=== PATIENT | female | born 1980 | race Two or more races ===

== ENCOUNTER 2017-10-31 14:46 | Emergency (ER) | payer BC ==
[~2017-10-31] VITALS: Ht 157.5 cm; Wt 85.7 kg
[2017-10-31] MEDS ORDERED: EPINEPHRINE (1:10,000) SYRINGE 1 MG/10 ML DISP.SYRIN ONE (14:55)
--- NOTE | 2017-10-31 14:55 | NUR ---
PATIENT TO ED DT POSSIBLE ALLERGIC REACTION FROM UNKNOWN ETIOLOGY. PATIENT NOTED WITH SCATTERED HIVES AND SWOLLEN LIPS. PATIENT'S TACHY ON TELE MONITOR. SKIN IS WARM TO TOUCH AND NON DIAPHORETIC. PT IS AFEBRILE. VSS
[2017-10-31] MEDS ORDERED: diphenhydrAMINE HCL 50 MG/ML VIAL ONE (14:58)
[2017-10-31] MEDS ORDERED: EPINEPHRINE (1:1000) 1 MG/ML AMPUL ONE (14:58)
[2017-10-31] MEDS ORDERED: methylPREDNISolone SOD SUCC 125 MG/2ML VIAL IV ONE (15:00)
[2017-10-31] MEDS ORDERED: IV NS 0.9% 1,000 ML BAG IV ONE (15:00)
[2017-10-31] MEDS ORDERED: diphenhydrAMINE HCL 50 MG/ML VIAL IV ONE (15:00)
[2017-10-31] MEDS ORDERED: methylPREDNISolone SOD SUCC 125 MG/2ML VIAL ONE (15:00)
[2017-10-31] MEDS ORDERED: FAMOTIDINE/PF INJ 20 MG/2 ML VIAL IV ONE ×2 (15:00)
[2017-10-31] MEDS ORDERED: EPINEPHRINE (1:1000) 1 MG/ML AMPUL IM ONE (15:00)
[2017-10-31 15:51] LABS: BASOPHILS # (AUTO) 0.2 /CMM (0.0-0.2); BASOPHILS % (AUTO) 0.9 % (0.0-2.0); EOSINOPHILS % (AUTO) 0.7 % (0.0-6.0); HEMATOCRIT 38 % (33-45); HEMOGLOBIN 12.4 g/dL (11.5-14.8); LYMPHOCYTES # (AUTO) 3.8 /CMM (0.8-4.8); LYMPHOCYTES % (AUTO) 20.1 % (20.0-44.0); MEAN CORPUSCULAR HGB CONC 33 g/dl (31.0-36.0); MEAN CORPUSCULAR VOLUME 78 fL (82-100); MONOCYTES # (AUTO) 0.3 /CMM (0.1-1.30); MONOCYTES % (AUTO) 1.8 % (2.0-12.0); NEUTROPHILS # (AUTO) 14.4 /CMM (1.8-8.9); NEUTROPHILS % (AUTO) 76.5 % (43.0-81.0); PLATELET COUNT (AUTO) 328 /CMM (150-450); RDW COEFFICIENT OF VARIATION 15.4 (11.5-15.0); RED BLOOD CELL COUNT(AUTO) 4.84 MIL/uL (4.0-5.2); WHITE BLOOD COUNT (AUTO) 18.8 K/uL (4.3-11.0)
[2017-10-31 16:13] LABS: CALCIUM, SERUM 8.2 mg/dL (8.5-10.1); CREATININE 0.9 mg/dL (0.6-1.3)
[2017-10-31 16:15] LABS: POTASSIUM 2.8 mmol/L (3.5-5.1)
[2017-10-31 16:30] LABS: ALBUMIN 3.6 g/dL (3.4-5.0); BILIRUBIN,TOTAL 0.2 mg/dL (0.2-1.0)
[2017-10-31 16:31] LABS: TOTAL PROTEIN, SERUM 6.7 g/dL (6.4-8.2)
[2017-10-31 18:54] VITALS: BP 126/88
--- NOTE | 2017-10-31 18:54 | NUR ---
Patient discharged to home in stable condition. Written and verbal after care instructions given. Patient verbalizes understanding of instruction.IV removed. Catheter intact and site benign. Pressure and 4x4 applied to site. No bleeding noted.
== END 2017-10-31 18:55 | disposition home or self-care (01) ==
LOC: ER 14:49
DX: T78.2XXA Anaphylactic shock, unspecified, initial encounter (principal); R22.0 Localized swelling, mass and lump, head; L50.9 Urticaria, unspecified
CPT/HCPCS: 36415; 80053; 84703; 85025; 96361; 96372; 96374; 96375; 99291; A4606; J0171; J1200; J2930; J3490; J7030; Z7610